=== PATIENT | male | born 1965 | race Caucasian/White ===

== ENCOUNTER 2017-04-14 09:31 | Day surgery (SDC) | payer MEDICARE, MEDICAID ==
[2017-04-13 12:42] LABS: Basophils # (auto) 0.1 uL; Basophils % (auto) 0.6 % (0.0-2.0); CONDITION Y; Eosinophils # (auto) 0.5 uL; Eosinophils % (auto) 4.6 % (0.0-7.0); Hematocrit 43.3 % (41.0-53.0); Hemoglobin 14.6 g/dL (13.5-17.5); Lymphocytes # (auto) 2.5 uL; Mean Corpuscular Hemoglobin 30.5 pg (28.0-32.0); Mean Corpuscular Hgb Conc. 33.8 g/dL (32.0-36.0); Mean Corpuscular Volume 90.1 fL (80.0-100.0); Mean Platelet Volume 9.6 fL (7.4-10.4); Monocytes # (auto) 0.9 uL; Monocytes % (auto) 8.2 % (0.0-12.0); Neutrophils # (auto) 6.6 uL; Neutrophils % (auto) 62.6 % (37.0-80.0); Platelet Count (auto) 220 10^3/uL (140-450); Red Cell Distribution Width 15.3 % (11.6-16.0); White Blood Cell 10.5 10^3/uL (4.4-10.8)
[2017-04-13 13:15] LABS: Albumin 3.6 g/dL (3.4-5.0); BUN/Creatinine Ratio 14.6; Bilirubin, Total 0.3 mg/dL (0.2-1.0); Calcium 9.5 mg/dL (8.5-10.1); Total Protein 7.7 g/dL (6.4-8.2)
[2017-04-13 13:18] LABS: INR 0.94 (0.9-1.15); Partial Thromboplastin Time 26.8 sec (22.64-33.71); Prothrombin Time 10.2 sec (9.37-12.3)
[~2017-04-14] VITALS: Ht 185.4 cm; Wt 117.9 kg
[2017-04-14] MEDS ORDERED: ceFAZolin 1GM/50ML D5W 50 ML IV ONE (10:26)
[2017-04-14] MEDS ORDERED: methylPREDNISolone ACETATE 80 MG/ML VL ONE (12:20)
[2017-04-14] MEDS ORDERED: fentaNYL CITRATE 100 MCG/2 ML VL ONE (12:28)
[2017-04-14] MEDS ORDERED: NEOSTIGMINE 1 MG/ML INJ (10mg/10ML VIAL) ONE (12:30)
[2017-04-14] MEDS ORDERED: MIDAZOLAM HCL 1MG/1ML-2 ML VIAL ONE (12:30)
[2017-04-14] MEDS ORDERED: METOCLOPRAMIDE HCL 5MG/ml INJ 2ml VIAL ONE (12:30)
[2017-04-14] MEDS ORDERED: PROPOFOL 10 MG/ML 20 ML IV ONE (12:30)
[2017-04-14] MEDS ORDERED: GLYCOPYRROLATE 0.2 MG/ML 1ML VIAL ONE (12:30)
[2017-04-14] MEDS ORDERED: ROCURONIUM 10MG/ML 10ML VIAL IV ONE (12:31)
[2017-04-14] MEDS ORDERED: ONDANSETRON HCL 4 MG/2 ML VIAL IV ONE (12:51)
[2017-04-14] MEDS ORDERED: SUCCINYLCHOLINE CHLORIDE 20 MG/ML 10ML VIAL IV ONE (12:51)
[2017-04-14] MEDS ORDERED: HYDROmorphone HCL 2 MG/ML VL IV PRN (13:30)
[2017-04-14] MEDS ORDERED: METOCLOPRAMIDE HCL 5MG/ml INJ 2ml VIAL IV ONE (13:30)
[2017-04-14 14:41] VITALS: BP 163/109
== END 2017-04-14 14:55 | disposition home or self-care (01) ==
LOC: SUR 09:31
PROVIDERS: ATTEND Podiatrist Foot & Ankle Surgery
DX: M67.271 Synovial hypertrophy, not elsewhere classified, right ankle and foot (principal); I12.9 Hypertensive chronic kidney disease with stage 1 through stage 4 chronic kidney disease, or unspecified chronic kidney disease; N18.3 Chronic kidney disease, stage 3 (moderate); F32.9 Major depressive disorder, single episode, unspecified; F17.210 Nicotine dependence, cigarettes, uncomplicated; E66.01 Morbid (severe) obesity due to excess calories
CPT/HCPCS: 29895; 36415; 80053; 85025; 85610; 85730; 88305; J0330; J0690; J1040; J2250; J2405; J2704; J2765; J3010; L3260

== ENCOUNTER 2022-03-12 11:41 | Inpatient (IN) | payer MEDICARE, MEDICAID ==
[~2022-03-12] VITALS: Ht 185.4 cm; Wt 114.2 kg
[2022-03-12] MEDS ORDERED: IPRATROPIUM BROM 0.5 MG/2.5ML INH SOL NEB ONE (12:00)
[2022-03-12] MEDS ORDERED: ALBUTEROL SULF 2.5 MG/0.5ML(0.5%) NEB SOLN NEB ONE (12:00)
[2022-03-12] MEDS ORDERED: FUROSEMIDE 100 MG/10ML VIAL IV ONE (12:00)
[2022-03-12] MEDS ORDERED: methylPREDNISolone SOD SUCC 125 MG/2 ML VL IV ONE (12:00)
[2022-03-12] MEDS ORDERED: hydrALAZINE HCL 20 MG/ML VL IV ONE (12:30)
[2022-03-12 13:06] LABS: Basophils # (auto) 0.1 10 ^3/uL (0-0.2); Basophils % (auto) 0.9 % (0.0-2.0); Eosinophils # (auto) 0.3 10 ^3/uL (0-0.8); Hematocrit 34.5 % (41.0-53.0); Hemoglobin 11.6 g/dL (13.5-17.5); Lymphocytes # (auto) 0.6 10 ^3/uL (0.4-5.4); Lymphocytes % (auto) 7.8 % (10.0-50.0); Mean Corpuscular Hemoglobin 28.7 pg (28.0-32.0); Mean Corpuscular Hgb Conc. 33.7 g/dL (32.0-36.0); Mean Corpuscular Volume 85.2 fL (80.0-100.0); Monocytes # (auto) 0.7 10 ^3/uL (0-1.3); Monocytes % (auto) 9.3 % (0.0-12.0); Neutrophils # (auto) 6.2 10 ^3/uL (1.6-8.6); Red Blood Cells 4.04 10^6/uL (4.5-5.90); Red Cell Distribution Width 18.1 % (11.8-14.3); White Blood Cell 7.9 10^3/uL (4.4-10.8)
[2022-03-12 13:20] LABS: Albumin 2.6 g/dL (3.4-5.0); Calcium 8.9 mg/dL (8.5-10.1)
[2022-03-12 13:44] LABS: Bilirubin, Total 0.9 mg/dL (0.2-1.0); Total Protein 7.8 g/dL (6.4-8.2)
[2022-03-12] MEDS ORDERED: NITROGLYCERIN 50MG/250ML 250 ML IV ONE (15:00)
[2022-03-12 18:09] VITALS: BP 191/122
[2022-03-12 18:19] VITALS: BP 181/113
[2022-03-12] MEDS ORDERED: NITROGLYCERIN 0.4 MG SL TAB SL PRN (18:30)
[2022-03-12] MEDS ORDERED: FUROSEMIDE 20 MG/2 ML VIAL IV ONE (18:30)
[2022-03-12] MEDS ORDERED: POTASSIUM CHL 20 Meq TABLET PO ONE (18:45)
[2022-03-12] MEDS ORDERED: hydrALAZINE HCL 20 MG/ML VL IV PRN (18:45)
[2022-03-12 18:53] LABS: Cholesterol 115 mg/dL (< 200); HDL Cholesterol 32 mg/dL (40-59); LDL Cholesterol 82 mg/dL (< 100); Triglycerides 66 mg/dL (< 150)
[2022-03-12 21:51] VITALS: BP 199/136
[2022-03-12] MEDS: ALBUTEROL SULF 2.5 MG/0.5ML(0.5%) NEB SOLN NEB SCH (22:18)
[2022-03-12] MEDS: IPRATROPIUM BROM 0.5 MG/2.5ML INH SOL NEB SCH (22:18)
[2022-03-12] MEDS: IPRATROPIUM BROM 0.5 MG/2.5ML INH SOL NEB PRN (22:43)
[2022-03-12] MEDS: ALBUTEROL SULF 2.5 MG/0.5ML(0.5%) NEB SOLN NEB PRN (22:43)
[2022-03-12] MEDS: MORPHINE SULFATE INJ 2 MG/ml SYRG IV PRN (23:01)
[2022-03-13] VITALS (11 sets, daily range): BP systolic 96–186; BP diastolic 59–123
[2022-03-13] MEDS ORDERED: NITROGLYCERIN 50MG/250ML 250 ML IV ONE ×2 (00:48→12:18)
[2022-03-13] MEDS: CARVEDILOL 12.5 MG TAB PO SCH ×3 (02:46→21:25)
[2022-03-13] MEDS: IPRATROPIUM BROM 0.5 MG/2.5ML INH SOL NEB SCH ×4 (02:46→20:13)
[2022-03-13] MEDS: ALBUTEROL SULF 2.5 MG/0.5ML(0.5%) NEB SOLN NEB SCH ×4 (02:46→20:13)
[2022-03-13] MEDS: LORazepam 2MG/ML-1ML VIAL IV PRN ×2 (03:16→11:38)
[2022-03-13] MEDS: FUROSEMIDE 40 MG/4 ML VIAL IV SCH ×2 (05:21→18:00)
[2022-03-13] MEDS: ALBUTEROL SULF 2.5 MG/0.5ML(0.5%) NEB SOLN NEB PRN (05:51)
[2022-03-13 06:00] LABS: Basophils # (auto) 0 10 ^3/uL (0-0.2); Basophils % (auto) 0.3 % (0.0-2.0); Eosinophils # (auto) 0 10 ^3/uL (0-0.8); Hematocrit 35.6 % (41.0-53.0); Hemoglobin 12.1 g/dL (13.5-17.5); Lymphocytes # (auto) 0.7 10 ^3/uL (0.4-5.4); Mean Corpuscular Hemoglobin 28.9 pg (28.0-32.0); Mean Corpuscular Hgb Conc. 33.9 g/dL (32.0-36.0); Mean Corpuscular Volume 85.2 fL (80.0-100.0); Monocytes # (auto) 0.7 10 ^3/uL (0-1.3); Neutrophils % (auto) 85.7 % (37.0-80.0); Nucleated Red Blood Cells % 0.1 %; Red Blood Cells 4.18 10^6/uL (4.5-5.90); Red Cell Distribution Width 18.3 % (11.8-14.3); White Blood Cell 9.4 10^3/uL (4.4-10.8)
[2022-03-13 06:15] LABS: Albumin 2.4 g/dL (3.4-5.0); BUN/Creatinine Ratio 16.5; Calcium 8.7 mg/dL (8.5-10.1); Potassium 3.5 mmol/L (3.5-5.1)
[2022-03-13 06:18] LABS: Bilirubin, Total 0.8 mg/dL (0.2-1.0); Total Protein 7.2 g/dL (6.4-8.2)
[2022-03-13] MEDS: methylPREDNISolone SOD SUCC 125 MG/2 ML VL IV SCH ×2 (10:23→21:24)
[2022-03-13] MEDS: NICOTINE 7MG/24HR TOPICAL PATCH TD SCH (10:25)
[2022-03-13] MEDS ORDERED: ENOXAPARIN SOD 100 MG/1 ML SYRINGE SC ONE (11:30)
[2022-03-13] MEDS ORDERED: cloNIDine HCL 0.1 MG TAB PO ONE (11:30)
[2022-03-13] MEDS ORDERED: cloNIDine HCL 0.1 MG TAB PO PRN (13:30)
[2022-03-13] MEDS ORDERED: PIPERACILLIN-TAZOB 3.375GM 100 ML IV SCH (14:00)
[2022-03-13] MEDS: PIPERACILLIN-TAZOB 3.375GM 100 ML IV SCH ×2 (14:26→20:23)
[2022-03-13] MEDS ORDERED: PIPERACILLIN-TAZOB 2.25GM 50 ML IV SCH (18:00)
[2022-03-14] VITALS (10 sets, daily range): BP systolic 139–184; BP diastolic 70–113
[2022-03-14] MEDS: PIPERACILLIN-TAZOB 3.375GM 100 ML IV SCH ×4 (02:17→19:58)
[2022-03-14] MEDS ORDERED: NITROGLYCERIN 50MG/250ML 250 ML IV ONE (02:54)
[2022-03-14] MEDS ORDERED: NITROGLYCERIN 50MG/250ML 250 ML IV SCH (03:15)
[2022-03-14] MEDS: IPRATROPIUM BROM 0.5 MG/2.5ML INH SOL NEB SCH ×4 (05:48→23:55)
[2022-03-14] MEDS: ALBUTEROL SULF 2.5 MG/0.5ML(0.5%) NEB SOLN NEB SCH ×4 (05:49→23:55)
[2022-03-14] MEDS: FUROSEMIDE 40 MG/4 ML VIAL IV SCH (05:55)
[2022-03-14] MEDS ORDERED: CARVEDILOL 12.5 MG TAB ONE (08:23)
[2022-03-14] MEDS: methylPREDNISolone SOD SUCC 125 MG/2 ML VL IV SCH ×2 (08:28→22:04)
[2022-03-14] MEDS: NICOTINE 7MG/24HR TOPICAL PATCH TD SCH (08:35)
[2022-03-14] MEDS: amLODIPine BESYLATE 5 MG TAB PO SCH (08:35)
[2022-03-14] MEDS: CARVEDILOL 12.5 MG TAB PO SCH ×2 (08:35→22:07)
[2022-03-14 08:42] LABS: Potassium 3.3 mmol/L (3.5-5.1)
[2022-03-14 08:50] LABS: Albumin 2.3 g/dL (3.4-5.0); Calcium 8.8 mg/dL (8.5-10.1); Phosphorus 5.3 mg/dL (2.5-4.90)
[2022-03-14] MEDS ORDERED: ENOXAPARIN SOD 100 MG/1 ML SYRINGE SC SCH (10:00)
[2022-03-14] MEDS: LORazepam 2MG/ML-1ML VIAL IV PRN ×2 (11:38→19:54)
[2022-03-14] MEDS ORDERED: hydrALAZINE HCL 20 MG/ML VL IV PRN (15:00)
[2022-03-14] MEDS: DOBUTamine 1000MCG/ML 250 ML IV SCH (16:19)
[2022-03-14 19:58] LABS: Urine Bacteria FEW /hpf (None Seen); Urine Blood 2+ /uL (Negative); Urine Hyaline Cast MANY /lpf (0 - 2); Urine Mucus FEW (None Seen); Urine Specific Gravity 1.017 (1.001-1.035); Urine WBC 134 /hpf (0 - 3)
[2022-03-14 21:59] LABS: Alcohol, Urine < 3.0 mg/dL (0-10); Amphetamine Screen, Urine POSITIVE (NEGATIVE); Barbiturate Scree,Urine NEGATIVE (NEGATIVE); Benzodiazephine Screen, Urine NEGATIVE (NEGATIVE); Cannabinoid Screen, Urine NEGATIVE (NEGATIVE); Cocaine Screen, Urine NEGATIVE (NEGATIVE); Opiate Scree,Urine NEGATIVE (NEGATIVE); Phencyclidine Screen, Urine NEGATIVE (NEGATIVE); Protein, Urine 148.4 mg/dL (0.0-11.9)
[2022-03-15] MEDS: PIPERACILLIN-TAZOB 3.375GM 100 ML IV SCH ×2 (02:14→08:03)
[2022-03-15] MEDS: LORazepam 2MG/ML-1ML VIAL IV PRN ×3 (03:24→19:57)
[2022-03-15] MEDS: DOBUTamine 1000MCG/ML 250 ML IV SCH ×2 (05:11→20:18)
[2022-03-15 06:44] VITALS: BP 103/52
[2022-03-15] MEDS: IPRATROPIUM BROM 0.5 MG/2.5ML INH SOL NEB SCH ×3 (06:44→18:53)
[2022-03-15] MEDS: ALBUTEROL SULF 2.5 MG/0.5ML(0.5%) NEB SOLN NEB SCH ×3 (06:44→18:53)
[2022-03-15] MEDS: LABETALOL HCL 5 MG/ML 4ML SYRINGE IV PRN ×2 (07:58→10:06)
[2022-03-15] MEDS: ENOXAPARIN SOD 40 MG/0.4 ML SYRINGE SC SCH (10:02)
[2022-03-15] MEDS: NICOTINE 7MG/24HR TOPICAL PATCH TD SCH (10:02)
[2022-03-15 10:03] LABS: Albumin 2.5 g/dL (3.4-5.0); Calcium 8.8 mg/dL (8.5-10.1); Magnesium 3.2 mg/dL (1.6-2.6); Potassium 3.5 mmol/L (3.5-5.1)
[2022-03-15] MEDS: methylPREDNISolone SOD SUCC 125 MG/2 ML VL IV SCH (10:04)
[2022-03-15] MEDS: FUROSEMIDE 40 MG/4 ML VIAL IV SCH (10:05)
[2022-03-15 10:07] LABS: BUN/Creatinine Ratio 18.4; Bilirubin, Total 0.5 mg/dL (0.2-1.0); Total Protein 7.6 g/dL (6.4-8.2)
[2022-03-15] MEDS: amLODIPine BESYLATE 5 MG TAB PO SCH (10:07)
[2022-03-15] MEDS: CARVEDILOL 12.5 MG TAB PO SCH ×2 (10:08→22:24)
[2022-03-15 10:13] VITALS: BP 169/105
[2022-03-15 12:50] VITALS: BP 185/95
[2022-03-15] MEDS: hydrALAZINE HCL 20 MG/ML VL IV PRN ×2 (12:57→22:19)
[2022-03-15 14:00] VITALS: BP 184/102
[2022-03-15] MEDS: PIPERACILLIN-TAZOB 2.25GM 50 ML IV SCH ×2 (14:50→19:56)
[2022-03-15 15:52] VITALS: BP 161/88
[2022-03-15 21:02] VITALS: BP 174/97
[2022-03-15] MEDS: hydrALAZINE HCL 25 MG TAB PO SCH (22:23)
[2022-03-16 00:02] VITALS: BP 184/108
[2022-03-16] MEDS: hydrALAZINE HCL 20 MG/ML VL IV PRN ×2 (00:30→07:30)
[2022-03-16] MEDS: LABETALOL HCL 5 MG/ML 4ML SYRINGE IV PRN ×4 (01:31→11:09)
[2022-03-16] MEDS: PIPERACILLIN-TAZOB 2.25GM 50 ML IV SCH ×4 (01:47→20:15)
[2022-03-16 02:39] VITALS: BP 176/100
[2022-03-16 03:37] VITALS: BP 168/93
[2022-03-16] MEDS: hydrALAZINE HCL 25 MG TAB PO SCH ×3 (05:25→21:43)
[2022-03-16 06:31] LABS: BUN/Creatinine Ratio 20.8; Calcium 8.9 mg/dL (8.5-10.1); Potassium 3.2 mmol/L (3.5-5.1)
[2022-03-16] MEDS: IPRATROPIUM BROM 0.5 MG/2.5ML INH SOL NEB SCH ×3 (06:47→18:46)
[2022-03-16] MEDS: ALBUTEROL SULF 2.5 MG/0.5ML(0.5%) NEB SOLN NEB SCH ×3 (06:47→18:45)
[2022-03-16 08:36] LABS: Folate (Folic Acid) 8.71 ng/mL (5.38-24)
[2022-03-16] MEDS: LORazepam 2MG/ML-1ML VIAL IV PRN (08:50)
[2022-03-16] MEDS ORDERED: POTASSIUM CHL 20 Meq TABLET PO ONE (09:00)
[2022-03-16] MEDS: DOBUTamine 1000MCG/ML 250 ML IV SCH (09:27)
[2022-03-16] MEDS: amLODIPine BESYLATE 5 MG TAB PO SCH (09:52)
[2022-03-16] MEDS: CARVEDILOL 12.5 MG TAB PO SCH ×2 (09:52→21:43)
[2022-03-16] MEDS: FUROSEMIDE 40 MG/4 ML VIAL IV SCH (09:53)
[2022-03-16] MEDS: ENOXAPARIN SOD 40 MG/0.4 ML SYRINGE SC SCH (10:00)
[2022-03-16] MEDS: methylPREDNISolone SOD SUCC 125 MG/2 ML VL IV SCH (10:22)
[2022-03-16 11:56] VITALS: BP 176/100
[2022-03-16] MEDS: NICOTINE 7MG/24HR TOPICAL PATCH TD SCH (13:54)
[2022-03-17] VITALS (7 sets, daily range): BP systolic 138–172; BP diastolic 75–109
[2022-03-17] MEDS: DOBUTamine 1000MCG/ML 250 ML IV SCH ×2 (00:39→15:56)
[2022-03-17] MEDS: hydrALAZINE HCL 20 MG/ML VL IV PRN ×2 (01:44→08:26)
[2022-03-17] MEDS: PIPERACILLIN-TAZOB 2.25GM 50 ML IV SCH ×3 (02:20→14:43)
[2022-03-17] MEDS: LABETALOL HCL 5 MG/ML 4ML SYRINGE IV PRN ×3 (02:58→11:59)
[2022-03-17] MEDS: IPRATROPIUM BROM 0.5 MG/2.5ML INH SOL NEB SCH ×3 (05:23→18:00)
[2022-03-17] MEDS: ALBUTEROL SULF 2.5 MG/0.5ML(0.5%) NEB SOLN NEB SCH ×3 (05:23→18:00)
[2022-03-17 05:42] LABS: Basophils # (auto) 0 10 ^3/uL (0-0.2); Basophils % (auto) 0.2 % (0.0-2.0); Eosinophils # (auto) 0 10 ^3/uL (0-0.8); Eosinophils % (auto) 0.2 % (0.0-7.0); Hematocrit 38.3 % (41.0-53.0); Hemoglobin 12.8 g/dL (13.5-17.5); Lymphocytes # (auto) 1.1 10 ^3/uL (0.4-5.4); Mean Corpuscular Hemoglobin 28.1 pg (28.0-32.0); Mean Corpuscular Hgb Conc. 33.4 g/dL (32.0-36.0); Mean Corpuscular Volume 84.3 fL (80.0-100.0); Monocytes # (auto) 0.9 10 ^3/uL (0-1.3); Monocytes % (auto) 9.9 % (0.0-12.0); Neutrophils # (auto) 7.4 10 ^3/uL (1.6-8.6); Neutrophils % (auto) 77.7 % (37.0-80.0); Red Blood Cells 4.54 10^6/uL (4.5-5.90); Red Cell Distribution Width 18.3 % (11.8-14.3); White Blood Cell 9.5 10^3/uL (4.4-10.8)
[2022-03-17 05:57] LABS: Calcium 8.8 mg/dL (8.5-10.1); Potassium 3.3 mmol/L (3.5-5.1)
[2022-03-17] MEDS: hydrALAZINE HCL 25 MG TAB PO SCH ×3 (06:02→21:17)
[2022-03-17] MEDS: methylPREDNISolone SOD SUCC 125 MG/2 ML VL IV SCH (10:16)
[2022-03-17] MEDS: FUROSEMIDE 40 MG/4 ML VIAL IV SCH (10:16)
[2022-03-17] MEDS: CARVEDILOL 12.5 MG TAB PO SCH ×2 (10:17→21:18)
[2022-03-17] MEDS: ISOSORBIDE MONONITRATE ER 60 MG TAB PO SCH (10:18)
[2022-03-17] MEDS: amLODIPine BESYLATE 5 MG TAB PO SCH (10:18)
[2022-03-17] MEDS: ENOXAPARIN SOD 40 MG/0.4 ML SYRINGE SC SCH (10:19)
[2022-03-17] MEDS: NICOTINE 7MG/24HR TOPICAL PATCH TD SCH (11:57)
[2022-03-17] MEDS ORDERED: POTASSIUM EFFERVESENT TAB 25 MEQ GT ONE (12:30)
[2022-03-17] MEDS: PIPERACILLIN-TAZOB 3.375GM 100 ML IV SCH (20:36)
[2022-03-17] MEDS: LORazepam 2MG/ML-1ML VIAL IV PRN (21:14)
[2022-03-18] VITALS (25 sets, daily range): BP systolic 139–180; BP diastolic 68–100
[2022-03-18] MEDS: ALBUTEROL SULF 2.5 MG/0.5ML(0.5%) NEB SOLN NEB SCH ×4 (00:18→18:20)
[2022-03-18] MEDS: IPRATROPIUM BROM 0.5 MG/2.5ML INH SOL NEB SCH ×4 (00:18→18:20)
[2022-03-18] MEDS: LABETALOL HCL 5 MG/ML 4ML SYRINGE IV PRN ×6 (00:33→23:37)
[2022-03-18] MEDS: PIPERACILLIN-TAZOB 3.375GM 100 ML IV SCH ×4 (02:01→20:09)
[2022-03-18 05:38] LABS: Basophils # (auto) 0.1 10 ^3/uL (0-0.2); Basophils % (auto) 0.5 % (0.0-2.0); Eosinophils # (auto) 0.2 10 ^3/uL (0-0.8); Eosinophils % (auto) 2.4 % (0.0-7.0); Hematocrit 37.8 % (41.0-53.0); Hemoglobin 12.8 g/dL (13.5-17.5); Lymphocytes # (auto) 1.4 10 ^3/uL (0.4-5.4); Lymphocytes % (auto) 14.4 % (10.0-50.0); Mean Corpuscular Hemoglobin 28.5 pg (28.0-32.0); Mean Corpuscular Hgb Conc. 33.8 g/dL (32.0-36.0); Mean Corpuscular Volume 84.4 fL (80.0-100.0); Monocytes # (auto) 0.9 10 ^3/uL (0-1.3); Monocytes % (auto) 9.4 % (0.0-12.0); Neutrophils % (auto) 73.3 % (37.0-80.0); Nucleated Red Blood Cells % 0.1 %; Red Blood Cells 4.48 10^6/uL (4.5-5.90); Red Cell Distribution Width 17.9 % (11.8-14.3); White Blood Cell 9.5 10^3/uL (4.4-10.8)
[2022-03-18 06:03] LABS: BUN/Creatinine Ratio 18.2; Calcium 8.5 mg/dL (8.5-10.1); Potassium 3.1 mmol/L (3.5-5.1)
[2022-03-18] MEDS: hydrALAZINE HCL 25 MG TAB PO SCH ×3 (06:29→21:57)
[2022-03-18] MEDS: DOBUTamine 1000MCG/ML 250 ML IV SCH ×4 (06:29→23:30)
[2022-03-18] MEDS: POTASSIUM EFFERVESENT TAB 25 MEQ GT SCH (09:53)
[2022-03-18] MEDS: FUROSEMIDE 40 MG/4 ML VIAL IV SCH (09:54)
[2022-03-18] MEDS: methylPREDNISolone SOD SUCC 125 MG/2 ML VL IV SCH (09:55)
[2022-03-18] MEDS: amLODIPine BESYLATE 5 MG TAB PO SCH (09:56)
[2022-03-18] MEDS: ENOXAPARIN SOD 40 MG/0.4 ML SYRINGE SC SCH (09:56)
[2022-03-18] MEDS: CARVEDILOL 12.5 MG TAB PO SCH ×2 (09:57→21:58)
[2022-03-18] MEDS ORDERED: POTASSIUM CHLORIDE 40 MEQ, LIDOCAINE 1% (LOCAL ANESTH.) 4 ML in SODIUM CHL 0.9% 250 ML IV ONE (10:15)
[2022-03-18] MEDS: NICOTINE 7MG/24HR TOPICAL PATCH TD SCH (10:27)
[2022-03-18] MEDS: LORazepam 2MG/ML-1ML VIAL IV PRN ×2 (10:27→20:14)
[2022-03-18] MEDS: ISOSORBIDE MONONITRATE ER 60 MG TAB PO SCH (10:28)
[2022-03-19] VITALS (23 sets, daily range): BP systolic 112–178; BP diastolic 50–100
[2022-03-19] MEDS: LABETALOL HCL 5 MG/ML 4ML SYRINGE IV PRN ×2 (02:20→05:09)
[2022-03-19] MEDS: PIPERACILLIN-TAZOB 3.375GM 100 ML IV SCH ×4 (02:20→19:36)
[2022-03-19] MEDS: LORazepam 2MG/ML-1ML VIAL IV PRN ×2 (02:25→16:44)
[2022-03-19 05:21] LABS: Basophils # (auto) 0 10 ^3/uL (0-0.2); Basophils % (auto) 0.4 % (0.0-2.0); Eosinophils # (auto) 0.2 10 ^3/uL (0-0.8); Eosinophils % (auto) 2.6 % (0.0-7.0); Hemoglobin 12.2 g/dL (13.5-17.5); Lymphocytes # (auto) 1.2 10 ^3/uL (0.4-5.4); Lymphocytes % (auto) 13.1 % (10.0-50.0); Mean Corpuscular Hemoglobin 28.4 pg (28.0-32.0); Mean Corpuscular Hgb Conc. 33.9 g/dL (32.0-36.0); Mean Corpuscular Volume 83.7 fL (80.0-100.0); Monocytes # (auto) 0.7 10 ^3/uL (0-1.3); Monocytes % (auto) 7.3 % (0.0-12.0); Neutrophils % (auto) 76.6 % (37.0-80.0); Red Cell Distribution Width 17.8 % (11.8-14.3); White Blood Cell 9.1 10^3/uL (4.4-10.8)
[2022-03-19 05:48] LABS: Potassium 3.1 mmol/L (3.5-5.1)
[2022-03-19 05:59] LABS: BUN/Creatinine Ratio 16.4; Calcium 8.5 mg/dL (8.5-10.1)
[2022-03-19] MEDS: hydrALAZINE HCL 25 MG TAB PO SCH ×3 (06:09→18:02)
[2022-03-19] MEDS: CARVEDILOL 12.5 MG TAB PO SCH ×2 (10:00→21:31)
[2022-03-19] MEDS: POTASSIUM EFFERVESENT TAB 25 MEQ GT SCH (12:12)
[2022-03-19] MEDS: methylPREDNISolone SOD SUCC 125 MG/2 ML VL IV SCH (12:12)
[2022-03-19] MEDS: FUROSEMIDE 40 MG/4 ML VIAL IV SCH (12:12)
[2022-03-19] MEDS: amLODIPine BESYLATE 5 MG TAB PO SCH (12:13)
[2022-03-19] MEDS: ENOXAPARIN SOD 40 MG/0.4 ML SYRINGE SC SCH (12:13)
[2022-03-19] MEDS: ISOSORBIDE MONONITRATE ER 60 MG TAB PO SCH (12:14)
[2022-03-19] MEDS: DOBUTamine 1000MCG/ML 250 ML IV SCH (12:30)
[2022-03-19] MEDS: NICOTINE 7MG/24HR TOPICAL PATCH TD SCH (13:03)
[2022-03-19] MEDS: MORPHINE SULFATE INJ 2 MG/ml SYRG IV PRN (16:56)
[2022-03-19] MEDS: IPRATROPIUM BROM 0.5 MG/2.5ML INH SOL NEB SCH (18:56)
[2022-03-19] MEDS: ALBUTEROL SULF 2.5 MG/0.5ML(0.5%) NEB SOLN NEB SCH (18:56)
[2022-03-20] MEDS: hydrALAZINE HCL 25 MG TAB PO SCH ×3 (00:55→12:47)
[2022-03-20] MEDS: PIPERACILLIN-TAZOB 3.375GM 100 ML IV SCH ×4 (02:33→21:07)
[2022-03-20 05:10] VITALS: BP 157/80
[2022-03-20] MEDS: IPRATROPIUM BROM 0.5 MG/2.5ML INH SOL NEB SCH ×3 (06:22→18:29)
[2022-03-20] MEDS: ALBUTEROL SULF 2.5 MG/0.5ML(0.5%) NEB SOLN NEB SCH ×3 (06:22→18:29)
[2022-03-20 06:32] LABS: Basophils # (auto) 0 10 ^3/uL (0-0.2); Basophils % (auto) 0.2 % (0.0-2.0); Eosinophils # (auto) 0 10 ^3/uL (0-0.8); Eosinophils % (auto) 0.2 % (0.0-7.0); Hematocrit 38.2 % (41.0-53.0); Hemoglobin 12.6 g/dL (13.5-17.5); Lymphocytes # (auto) 0.9 10 ^3/uL (0.4-5.4); Lymphocytes % (auto) 8.8 % (10.0-50.0); Mean Corpuscular Hgb Conc. 33.1 g/dL (32.0-36.0); Mean Corpuscular Volume 84.7 fL (80.0-100.0); Monocytes # (auto) 0.7 10 ^3/uL (0-1.3); Monocytes % (auto) 6.6 % (0.0-12.0); Neutrophils # (auto) 8.9 10 ^3/uL (1.6-8.6); Neutrophils % (auto) 84.2 % (37.0-80.0); Red Blood Cells 4.51 10^6/uL (4.5-5.90); Red Cell Distribution Width 18.2 % (11.8-14.3); White Blood Cell 10.6 10^3/uL (4.4-10.8)
[2022-03-20 06:53] LABS: BUN/Creatinine Ratio 16.4; Calcium 8.8 mg/dL (8.5-10.1); Potassium 3.5 mmol/L (3.5-5.1)
[2022-03-20 09:00] VITALS: BP 152/91
[2022-03-20] MEDS: NICOTINE 7MG/24HR TOPICAL PATCH TD SCH (09:21)
[2022-03-20] MEDS: methylPREDNISolone SOD SUCC 125 MG/2 ML VL IV SCH (09:21)
[2022-03-20] MEDS: ENOXAPARIN SOD 40 MG/0.4 ML SYRINGE SC SCH (09:22)
[2022-03-20] MEDS: amLODIPine BESYLATE 5 MG TAB PO SCH (09:23)
[2022-03-20] MEDS: CARVEDILOL 12.5 MG TAB PO SCH ×2 (09:23→22:09)
[2022-03-20] MEDS: FUROSEMIDE 40 MG/4 ML VIAL IV SCH (09:25)
[2022-03-20] MEDS: ISOSORBIDE MONONITRATE ER 60 MG TAB PO SCH (09:25)
[2022-03-20] MEDS: POTASSIUM EFFERVESENT TAB 25 MEQ GT SCH (09:26)
[2022-03-20] MEDS: LORazepam 2MG/ML-1ML VIAL IV PRN (10:29)
[2022-03-20] MEDS ORDERED: ACETAMINOPHEN 325 MG TAB PO PRN (12:30)
[2022-03-20 13:00] VITALS: BP 142/78
[2022-03-20] MEDS: ACETAMINOPHEN 325 MG TAB PO PRN (16:45)
[2022-03-20 17:00] VITALS: BP 145/82
[2022-03-20 21:53] VITALS: BP 137/72
[2022-03-20] MEDS: ALBUTEROL SULF 2.5 MG/0.5ML(0.5%) NEB SOLN NEB PRN (22:15)
[2022-03-20] MEDS: IPRATROPIUM BROM 0.5 MG/2.5ML INH SOL NEB PRN (22:15)
[2022-03-21] MEDS: ACETAMINOPHEN 325 MG TAB PO PRN ×2 (01:54→23:32)
[2022-03-21] MEDS: LORazepam 2MG/ML-1ML VIAL IV PRN ×2 (02:52→10:26)
[2022-03-21] MEDS: PIPERACILLIN-TAZOB 3.375GM 100 ML IV SCH ×4 (02:52→20:25)
[2022-03-21 04:43] VITALS: BP 153/93
[2022-03-21 06:05] LABS: Basophils # (auto) 0 10 ^3/uL (0-0.2); Basophils % (auto) 0.1 % (0.0-2.0); Eosinophils # (auto) 0.1 10 ^3/uL (0-0.8); Eosinophils % (auto) 0.5 % (0.0-7.0); Hematocrit 38.4 % (41.0-53.0); Hemoglobin 12.7 g/dL (13.5-17.5); Lymphocytes % (auto) 9.7 % (10.0-50.0); Mean Corpuscular Hgb Conc. 33.1 g/dL (32.0-36.0); Mean Corpuscular Volume 84.6 fL (80.0-100.0); Monocytes # (auto) 0.8 10 ^3/uL (0-1.3); Monocytes % (auto) 7.8 % (0.0-12.0); Neutrophils # (auto) 8.8 10 ^3/uL (1.6-8.6); Neutrophils % (auto) 81.9 % (37.0-80.0); Red Blood Cells 4.54 10^6/uL (4.5-5.90); White Blood Cell 10.8 10^3/uL (4.4-10.8)
[2022-03-21] MEDS: IPRATROPIUM BROM 0.5 MG/2.5ML INH SOL NEB SCH ×3 (06:07→19:27)
[2022-03-21] MEDS: ALBUTEROL SULF 2.5 MG/0.5ML(0.5%) NEB SOLN NEB SCH ×3 (06:07→19:28)
[2022-03-21 06:22] LABS: Calcium 8.5 mg/dL (8.5-10.1); Potassium 3.3 mmol/L (3.5-5.1)
[2022-03-21 06:25] LABS: BUN/Creatinine Ratio 18.5
[2022-03-21] MEDS: hydrALAZINE HCL 25 MG TAB PO SCH ×4 (07:02→18:00)
[2022-03-21 09:00] VITALS: BP 179/104
[2022-03-21] MEDS: ENOXAPARIN SOD 40 MG/0.4 ML SYRINGE SC SCH (10:25)
[2022-03-21] MEDS: FUROSEMIDE 40 MG/4 ML VIAL IV SCH (10:26)
[2022-03-21] MEDS: CARVEDILOL 12.5 MG TAB PO SCH ×2 (10:27→21:44)
[2022-03-21] MEDS: ISOSORBIDE MONONITRATE ER 60 MG TAB PO SCH (10:27)
[2022-03-21] MEDS: methylPREDNISolone SOD SUCC 125 MG/2 ML VL IV SCH (10:27)
[2022-03-21] MEDS: POTASSIUM EFFERVESENT TAB 25 MEQ GT SCH (10:28)
[2022-03-21] MEDS: amLODIPine BESYLATE 5 MG TAB PO SCH (10:29)
[2022-03-21] MEDS: NICOTINE 7MG/24HR TOPICAL PATCH TD SCH (10:30)
[2022-03-21] MEDS ORDERED: NIFEdipine ER 30 MG TAB PO ONE (11:30)
[2022-03-21 13:00] VITALS: BP 174/100
[2022-03-21 16:30] VITALS: BP 139/73
[2022-03-21 22:00] VITALS: BP 166/103
[2022-03-22] MEDS: hydrALAZINE HCL 25 MG TAB PO SCH ×5 (00:10→23:44)
[2022-03-22] MEDS: LORazepam 2MG/ML-1ML VIAL IV PRN ×2 (02:16→22:07)
[2022-03-22] MEDS: PIPERACILLIN-TAZOB 3.375GM 100 ML IV SCH ×4 (02:17→20:22)
[2022-03-22 04:26] VITALS: BP 138/80
[2022-03-22 05:00] VITALS: BP 146/71
[2022-03-22] MEDS: IPRATROPIUM BROM 0.5 MG/2.5ML INH SOL NEB SCH ×3 (06:09→19:12)
[2022-03-22] MEDS: ALBUTEROL SULF 2.5 MG/0.5ML(0.5%) NEB SOLN NEB SCH ×3 (06:09→19:13)
[2022-03-22 06:12] LABS: Potassium 3.4 mmol/L (3.5-5.1)
[2022-03-22 06:22] LABS: BUN/Creatinine Ratio 23.8; Calcium 8.8 mg/dL (8.5-10.1)
[2022-03-22 09:00] VITALS: BP 129/68
[2022-03-22] MEDS: FUROSEMIDE 40 MG/4 ML VIAL IV SCH (10:00)
[2022-03-22] MEDS: NICOTINE 7MG/24HR TOPICAL PATCH TD SCH (10:00)
[2022-03-22] MEDS: NIFEdipine ER 30 MG TAB PO SCH (10:00)
[2022-03-22] MEDS: POTASSIUM EFFERVESENT TAB 25 MEQ GT SCH (10:00)
[2022-03-22] MEDS: CARVEDILOL 12.5 MG TAB PO SCH ×2 (10:00→21:40)
[2022-03-22] MEDS: ISOSORBIDE MONONITRATE ER 60 MG TAB PO SCH (10:00)
[2022-03-22] MEDS: methylPREDNISolone SOD SUCC 125 MG/2 ML VL IV SCH (10:00)
[2022-03-22] MEDS: ENOXAPARIN SOD 40 MG/0.4 ML SYRINGE SC SCH (10:00)
[2022-03-22 13:00] VITALS: BP 156/81
[2022-03-22] MEDS ORDERED: POTASSIUM CHL 20 Meq TABLET PO ONE (13:00)
[2022-03-22 22:00] VITALS: BP 171/93
[2022-03-22] MEDS: ACETAMINOPHEN 325 MG TAB PO PRN (22:08)
[2022-03-22] MEDS ORDERED: HYDROcodone-ACET 5/325MG TAB PO ONE (22:45)
[2022-03-23] MEDS: PIPERACILLIN-TAZOB 3.375GM 100 ML IV SCH ×4 (01:52→20:33)
[2022-03-23 05:00] VITALS: BP 137/71
[2022-03-23 05:42] LABS: Calcium 8.6 mg/dL (8.5-10.1); Magnesium 2.3 mg/dL (1.6-2.6); Potassium 3.4 mmol/L (3.5-5.1)
[2022-03-23] MEDS: IPRATROPIUM BROM 0.5 MG/2.5ML INH SOL NEB SCH ×3 (06:31→20:00)
[2022-03-23] MEDS: ALBUTEROL SULF 2.5 MG/0.5ML(0.5%) NEB SOLN NEB SCH ×3 (06:31→20:00)
[2022-03-23] MEDS: hydrALAZINE HCL 25 MG TAB PO SCH ×3 (06:34→18:32)
[2022-03-23 09:00] VITALS: BP 141/87
[2022-03-23] MEDS: ENOXAPARIN SOD 40 MG/0.4 ML SYRINGE SC SCH (09:36)
[2022-03-23] MEDS: methylPREDNISolone SOD SUCC 125 MG/2 ML VL IV SCH (09:36)
[2022-03-23] MEDS: FUROSEMIDE 40 MG/4 ML VIAL IV SCH (09:36)
[2022-03-23] MEDS: ISOSORBIDE MONONITRATE ER 60 MG TAB PO SCH (09:37)
[2022-03-23] MEDS: NIFEdipine ER 30 MG TAB PO SCH (09:37)
[2022-03-23] MEDS: CARVEDILOL 12.5 MG TAB PO SCH ×2 (09:38→21:36)
[2022-03-23] MEDS: NICOTINE 7MG/24HR TOPICAL PATCH TD SCH (09:39)
[2022-03-23] MEDS: POTASSIUM EFFERVESENT TAB 25 MEQ PO SCH (11:01)
[2022-03-23 13:00] VITALS: BP 131/85
[2022-03-23] MEDS: HYDROcodone-ACET 5/325MG TAB PO PRN ×2 (14:33→21:36)
[2022-03-23 17:00] VITALS: BP 133/81
[2022-03-23 22:00] VITALS: BP 141/70
[2022-03-23] MEDS: IPRATROPIUM BROM 0.5 MG/2.5ML INH SOL NEB PRN (22:54)
[2022-03-23] MEDS: ALBUTEROL SULF 2.5 MG/0.5ML(0.5%) NEB SOLN NEB PRN (22:54)
[2022-03-24] MEDS: hydrALAZINE HCL 25 MG TAB PO SCH ×2 (00:26→06:49)
[2022-03-24] MEDS: LORazepam 2MG/ML-1ML VIAL IV PRN (00:29)
[2022-03-24] MEDS: PIPERACILLIN-TAZOB 3.375GM 100 ML IV SCH ×2 (02:38→08:06)
[2022-03-24 05:00] VITALS: BP 139/82
[2022-03-24 05:17] LABS: Basophils # (auto) 0 10 ^3/uL (0-0.2); Basophils % (auto) 0.3 % (0.0-2.0); Eosinophils # (auto) 0.1 10 ^3/uL (0-0.8); Eosinophils % (auto) 0.6 % (0.0-7.0); Hematocrit 36.5 % (41.0-53.0); Hemoglobin 12.5 g/dL (13.5-17.5); Mean Corpuscular Hgb Conc. 34.1 g/dL (32.0-36.0); Mean Corpuscular Volume 84.8 fL (80.0-100.0); Monocytes # (auto) 0.9 10 ^3/uL (0-1.3); Monocytes % (auto) 7.8 % (0.0-12.0); Neutrophils # (auto) 9.4 10 ^3/uL (1.6-8.6); Neutrophils % (auto) 82.3 % (37.0-80.0); Nucleated Red Blood Cells % 0.1 %; Red Cell Distribution Width 17.9 % (11.8-14.3); White Blood Cell 11.4 10^3/uL (4.4-10.8)
[2022-03-24 05:33] LABS: BUN/Creatinine Ratio 18.8; Calcium 8.9 mg/dL (8.5-10.1); Potassium 3.4 mmol/L (3.5-5.1)
[2022-03-24] MEDS: ALBUTEROL SULF 2.5 MG/0.5ML(0.5%) NEB SOLN NEB SCH (06:10)
[2022-03-24] MEDS: IPRATROPIUM BROM 0.5 MG/2.5ML INH SOL NEB SCH (06:10)
[2022-03-24 09:00] VITALS: BP 125/78
[2022-03-24] MEDS: POTASSIUM EFFERVESENT TAB 25 MEQ PO SCH (10:18)
[2022-03-24] MEDS: NIFEdipine ER 30 MG TAB PO SCH (10:19)
[2022-03-24] MEDS: ISOSORBIDE MONONITRATE ER 60 MG TAB PO SCH (10:19)
[2022-03-24] MEDS: FUROSEMIDE 40 MG/4 ML VIAL IV SCH (10:20)
[2022-03-24] MEDS: CARVEDILOL 12.5 MG TAB PO SCH (10:20)
[2022-03-24] MEDS: ENOXAPARIN SOD 40 MG/0.4 ML SYRINGE SC SCH (10:20)
[2022-03-24] MEDS: NICOTINE 7MG/24HR TOPICAL PATCH TD SCH (10:21)
[2022-03-24] MEDS ORDERED: CAR125T PO (10:31)
[2022-03-24] MEDS ORDERED: FURO1TAB33 PO (10:31)
[2022-03-24] MEDS ORDERED: NIFE1TAB31 PO (10:31)
[2022-03-24] MEDS ORDERED: HYDR25TA87 PO (10:31)
[2022-03-24] MEDS ORDERED: ALB5IS NEB (10:31)
[2022-03-24] MEDS ORDERED: ISO60SRT PO (10:31)
== END 2022-03-24 13:16 | disposition home or self-care (01) | DRG 177 ==
LOC: ER 11:41 → EDBD 11:41 → TELE 18:19 → DOU IN ICU 03-17 17:11 → TELE-WESTW 03-19 22:15
PROVIDERS: ADMIT Registered Nurse; ATTEND Internal Medicine Pulmonary Disease
PROC: 5A09357 Assistance with Respiratory Ventilation, Less than 24 Consecutive Hours, Continuous Positive Airway Pressure (ICD-10-PCS; principal; 2022-03-12)
PROC: 5A09357 Assistance with Respiratory Ventilation, Less than 24 Consecutive Hours, Continuous Positive Airway Pressure (ICD-10-PCS; 2022-03-13)
PROC: 05HA33Z Insertion of Infusion Device into Left Brachial Vein, Percutaneous Approach (ICD-10-PCS; 2022-03-13)
PROC: B54NZZA Ultrasonography of Left Upper Extremity Veins, Guidance (ICD-10-PCS; 2022-03-13)
PROC: 5A09457 Assistance with Respiratory Ventilation, 24-96 Consecutive Hours, Continuous Positive Airway Pressure (ICD-10-PCS; 2022-03-14)
PROC: 5A09357 Assistance with Respiratory Ventilation, Less than 24 Consecutive Hours, Continuous Positive Airway Pressure (ICD-10-PCS; 2022-03-18)
PROC: 5A09357 Assistance with Respiratory Ventilation, Less than 24 Consecutive Hours, Continuous Positive Airway Pressure (ICD-10-PCS; 2022-03-19)
PROC: 5A09357 Assistance with Respiratory Ventilation, Less than 24 Consecutive Hours, Continuous Positive Airway Pressure (ICD-10-PCS; 2022-03-20)
PROC: 5A09357 Assistance with Respiratory Ventilation, Less than 24 Consecutive Hours, Continuous Positive Airway Pressure (ICD-10-PCS; 2022-03-21)
DX: J69.0 Pneumonitis due to inhalation of food and vomit (principal); I21.A1 Myocardial infarction type 2; I67.83 Posterior reversible encephalopathy syndrome; J96.21 Acute and chronic respiratory failure with hypoxia; J96.22 Acute and chronic respiratory failure with hypercapnia; G92.8 Other toxic encephalopathy; I50.43 Acute on chronic combined systolic (congestive) and diastolic (congestive) heart failure; N17.9 Acute kidney failure, unspecified; I13.0 Hypertensive heart and chronic kidney disease with heart failure and stage 1 through stage 4 chronic kidney disease, or unspecified chronic kidney disease; I16.1 Hypertensive emergency; I67.4 Hypertensive encephalopathy; I42.7 Cardiomyopathy due to drug and external agent; I42.8 Other cardiomyopathies; J44.1 Chronic obstructive pulmonary disease with (acute) exacerbation; J44.0 Chronic obstructive pulmonary disease with (acute) lower respiratory infection; J98.11 Atelectasis; S27.321A Contusion of lung, unilateral, initial encounter; Z20.822 Contact with and (suspected) exposure to COVID-19; M54.16 Radiculopathy, lumbar region; N18.32 Chronic kidney disease, stage 3b; E11.22 Type 2 diabetes mellitus with diabetic chronic kidney disease; E11.40 Type 2 diabetes mellitus with diabetic neuropathy, unspecified; E88.09 Other disorders of plasma-protein metabolism, not elsewhere classified; F15.90 Other stimulant use, unspecified, uncomplicated; E87.6 Hypokalemia; I25.10 Atherosclerotic heart disease of native coronary artery without angina pectoris; Z72.0 Tobacco use; Z71.6 Tobacco abuse counseling
CPT/HCPCS: 36415; 36600; 70450; 71045; 71250; 76775; 80048; 80053; 80061; 80069; 80307; 81001; 82570; 82607; 82746; 82805; 83036; 83735; 83880; 84156; 84300; 84443; 84484; 85025; 85379; 87040; 87070; 87077; 87081; 87205; 93005; 93306; 93970; 93975; 94003; 94640; 94660; 95819; 96365; 96375; 97110; 97116; 97163; 97530; 99291; G0378; J2001; J2543; J3490